=== PATIENT | male | born 1935 | race Caucasian/White ===

== ENCOUNTER 2024-02-15 21:10 | Emergency (ER) | payer MEDICARE, BC, SELFPAY ==
[2024-02-15 21:19] VITALS: BMI 25.6
[2024-02-15 21:20] VITALS: BP 156/111
--- NOTE | 2024-02-15 21:29 | ED.GENMED ---
History of Present Illness
General
Chief Complaint: Musculo-Skeletal Complaint
Time Seen by Provider: 02/15/24 21:12
History of Present Illness
History of Present Illness:
Patient is a 88-year-old male with history of A-fib not currently on Eliquis, CAD, hypertension, hyperlipidemia presenting to the emergency department after a fall. Patient states that he was walking up the steps when he missed the last step
falling forward and landing on his right side. He is having significant pain to the right upper extremity. He did not hit his head or lose consciousness. He is not on blood thinners. Denies pain elsewhere. He was able to stand with assistance
from his family. At this time he says that he is having very minimal pain at the right upper extremity. No numbness no tingling.
Past History
Past History
ED Past Medical History: CAD, Hypercholesterolemia, Other (Prostatitis) and Other (GI bleeding)
ED Past Surgical History: Cardiac (CABG) and Other (Hernia repair August 2014, wisdom teeth, skin surgery)
Social History
Tobacco: Non-smoker
Alcohol: None
Drug: None
Personal:
Living: with family
Employment: Retired
Family History
Family History: Other (Noncontributory)
Phy Exam
Physical Exam
Physical Exam:
GENERAL: no acute distress
HEENT: atraumatic, extraocular muscles intact, no signs of entrapment, dentition intact, no other obvious trauma
NECK: no midline tenderness, normal range of motion, NEXUS criteria negative, no other obvious trauma
BACK: no midline tenderness, no other obvious trauma
CHEST: no tenderness, no flail segment, no subcutaneous emphysema, no other obvious trauma
LUNGS: clear to auscultation bilaterally
CARDIOVASCULAR: regular rate and rhythm
ABDOMEN: soft, non-tender, no masses, no other obvious trauma
PELVIS: stable, no obvious injury
EXTREMITIES: moving all extremities, distal pulses intact, right upper extremity in sling with tenderness at the distal humerus and around the elbow, some deformity at the distal humerus, neurovascularly intact, normal cap refill, full range of
motion at the wrist and the shoulder
NEUROLOGIC: awake, alert x 3, no focal deficits
Course
Orders/Labs/Results
Orders:
Orders
02/15/24 21:28
Acetaminophen [Tylenol] 1,000 mg PO NOW STA
CR Elbow - Right Min 2 View Urgent
Reason For Exam: fall
Humerus, Right 2 Views [CR Humerus - Right Min 2 View*] Urgent
Comment:
Reason For Exam: fall
Vital Signs
Initial and Last Documented VS:
Initial Vital Signs
Temp Pulse Resp BP Pulse Ox
98.0 F 87 18 156/111 97
02/15/24 21:20 02/15/24 21:20 02/15/24 21:20 02/15/24 21:20 02/15/24 21:20
Last Documented Vital Signs
Temp Pulse Resp BP Pulse Ox
98.0 F 80 14 122/71 96
02/15/24 21:20 02/15/24 23:00 02/15/24 23:00 02/15/24 23:00 02/15/24 23:00
MDM/Problems Addressed
Differential Diagnosis Includes:
Patient is a 88-year-old man presenting to the emergency department after a mechanical fall landing on his right arm. Vitals here are unremarkable and exam does show tenderness to the distal humerus and elbow. Concern for fracture versus
dislocation. Will obtain x-rays. Will give Tylenol. Consider obtaining CT imaging however will hold off at this time as patient is not on any blood thinners and did not hit his head.
*Critical Care Note
Total Time (30-74mins, 75-104mins- exclusive of procedures): Not Applicable
Update Note
Update Note:
X-ray per my interpretation with no shaft fracture. Discussed with orthopedics who is in agreement with coaptation splint and discharged with outpatient follow-up. Patient does not use a walker. He does feel comfortable with this plan and will be
able to ambulate. Will discharge at this time. Strict return precautions given.
ED Attending Note
-
Portions of this chart may have been created with voice recognition software.� Occasional wrong word or��sound alike� substitutions may have occurred due to the inherent limitations of voice recognition software.
Discharge Plan
Departure
Patient Disposition: Home (Routine Discharge)
Date of Disposition: 02/15/24
Time of Disposition: 23:52
Patient with high blood pressure during this ER visit?: Yes
Discharge Problem:
Fracture of humeral shaft, closed
Instructions: How to Use a Shoulder Sling, Splint Care
Prescriptions:
No Action
finasteride 5 MG tablet
5 mg PO DAILY@1900
multivitamin with folic acid [Tab-A-Joshua] 1 TABLET tablet
1 tab PO DAILY
cholecalciferol (vitamin D3) 1,000 UNITS tablet
1,000 units PO DAILY
rosuvastatin 20 mg Tablet
20 mg PO HS
metoprolol succinate
0.5 tab PO DAILY
Patient Comments:
patient does not know dose
Eliquis 2.5 mg tablet
2.5 mg PO BID
cefdinir 300 mg capsule
300 mg PO BID Qty: 14 0RF
Referrals:
Tony Arthur MD [Family Provider] -
Lokesh Parra MD [Active] -
Activity Restrictions/Additional Instructions:
You were seen in the Emergency Department today for a fall. You are found to have a fracture of your upper arm. Please keep the splint and use the sling. Please follow-up with the orthopedic surgeon as we discussed. You may take Tylenol for pain.
We would like for you to follow up with your primary care physician for further evaluation. If you experience fever, worsening of your symptoms, or develop any other new or concerning symptoms, please return to the Emergency Department immediately.
Please see the attached sheet for additional information.
Interventions
Interventions:
*Risk Screen - Suicide Last Done: 02/15/24 21:27
*General Assessment Last Done: 02/15/24 21:27
*Neglect/Abuse Screening Last Done: 02/15/24 21:27
*ED COVID-19 Vaccine History Last Done: 02/15/24 21:27
ED-Musculoskeletal Assessment Last Done: 02/15/24 21:24
Discharge Date and Time
Print Language: [id number]
[2024-02-15] MEDS: TYLENOL 1000 MG PO (21:34)
[2024-02-15 23:00] VITALS: BP 122/71
== END 2024-02-16 00:22 | disposition home or self-care (01) ==
LOC: EMR 21:10
PROVIDERS: EMERGENCY PHYSICIAN Student in an Organized Health Care Education/Training Program; FAMILY PHYSICIAN Internal Medicine
DX: S42.301A Unspecified fracture of shaft of humerus, right arm, initial encounter for closed fracture (principal); W10.9XXA Fall (on) (from) unspecified stairs and steps, initial encounter; Y93.01 Activity, walking, marching and hiking; R03.0 Elevated blood-pressure reading, without diagnosis of hypertension; I48.91 Unspecified atrial fibrillation; I25.10 Atherosclerotic heart disease of native coronary artery without angina pectoris; E78.00 Pure hypercholesterolemia, unspecified; Z95.1 Presence of aortocoronary bypass graft; Z88.7 Allergy status to serum and vaccine
CPT/HCPCS: 99283; 29125; 73060; 73070

== ENCOUNTER → 2024-02-23 10:48 | Outpatient (REF) | payer MEDICARE, BC, SELFPAY ==
[2024-02-23 11:44] LABS: % Basophils 0.3 % (0-2); % Eosinophils 0.5 % (0-6); % Immature Granulocytes 0.8 % (0-0.5); % Lymphocytes 20.1 % (20.5-51.1); % Monocytes 11.3 % (1.7-9.3); Absolute Immature Granulocytes 0.1 10^3/uL (0-0.05); Absolute Lymphocytes 1.3 10^3/uL (1.2-3.4); Absolute Monocytes 0.7 10^3/uL (0.1-0.6); Absolute Neutrophils 4.3 10^3/uL (1.4-6.5); Hematocrit 34.3 % (39.0-52.0); Hemoglobin 11.3 g/dL (13.0-18.0); Mean Corp Hgb Conc. 32.9 g/dL (33.0-37.0); Mean Corpuscular Hgb 32.6 pg (27.0-31.0); Mean Corpuscular Volume 98.8 fL (80.0-94.0); Mean Platelet Volume 9.9 fL (7.4-10.4); Nucleated Red Blood Cells % 0 % (-); Platelet Count 235 10^3/uL (130-400); Red Blood Cell Count 3.47 10^6/uL (4.70-6.10); Red Cell Dist. Width 14.5 % (11.5-14.5); White Blood Cell Count 6.4 10^3/uL (4.8-10.8)
[2024-02-23 12:30] LABS: Blood Urea Nitrogen 19 mg/dl (9-20); Calcium 9.3 mg/dl (8.4-10.2); Carbon Dioxide 26 mmol/L (22-30); Chloride 102 mmol/L (98-107); Glucose 103 mg/dl (70-99); Potassium 4.7 mmol/L (3.5-5.1); Sodium 139 mmol/L (135-145); eGFR > 60.00
== END ==
LOC: REG 10:48
PROVIDERS: ATTENDING PHYSICIAN Orthopaedic Surgery; FAMILY PHYSICIAN Internal Medicine; REFERRING PHYSICIAN Internal Medicine
DX: Z01.818 Encounter for other preprocedural examination (principal)
CPT/HCPCS: 36415; 80048; 85025